=== PATIENT | female | born 2000 | race African-American/Black ===

== ENCOUNTER 2019-03-19 19:05 | Emergency (ER) | payer OTHER ==
[~2019-03-19] VITALS: Ht 160 cm; Wt 54.4 kg
[2019-03-19 19:06] VITALS: BP 114/51
[2019-03-19] MEDS ORDERED: MUPIROCIN1 GM TOP (19:27)
== END 2019-03-19 19:37 | disposition home or self-care (01) ==
LOC: ER 19:05
DX: L01.00 Impetigo, unspecified (principal)